=== PATIENT | female | born 1965 ===

== ENCOUNTER 2018-03-26 18:00 | Outpatient (CLI) | payer BC | END 2018-03-26 18:01 | disposition home or self-care (01) | LOC: SLEEPLAB 18:00 | PROVIDERS: ATTEND Internal Medicine | DX: G47.33 Obstructive sleep apnea (adult) (pediatric) (principal); R53.83 Other fatigue; R09.89 Other specified symptoms and signs involving the circulatory and respiratory systems; R51 Headache; R06.83 Snoring; G47.00 Insomnia, unspecified; R35.1 Nocturia; F32.9 Major depressive disorder, single episode, unspecified; G47.10 Hypersomnia, unspecified; Z68.26 Body mass index [BMI] 26.0-26.9, adult | CPT/HCPCS: 95806 ==

== ENCOUNTER 2018-05-26 19:30 | Outpatient (CLI) | payer BC | END 2018-05-26 19:31 | disposition home or self-care (01) | LOC: SLEEPLAB 19:30 | PROVIDERS: ATTEND Internal Medicine | DX: G47.33 Obstructive sleep apnea (adult) (pediatric) (principal); K21.9 Gastro-esophageal reflux disease without esophagitis; R51 Headache; R53.83 Other fatigue; R35.1 Nocturia | CPT/HCPCS: 95810 ==

== ENCOUNTER 2018-06-02 20:30 | Outpatient (CLI) | payer BC | END 2018-06-02 20:31 | disposition home or self-care (01) | LOC: SLEEPLAB 20:30 | PROVIDERS: ATTEND Internal Medicine | DX: G47.33 Obstructive sleep apnea (adult) (pediatric) (principal); R51 Headache; K21.9 Gastro-esophageal reflux disease without esophagitis; R35.1 Nocturia | CPT/HCPCS: 95811 ==